=== PATIENT | female | born 1950 | race Caucasian/White ===

== ENCOUNTER 2019-08-09 11:25 | Observation (INO) | payer MEDICARE, BC ==
--- NOTE | 2019-08-09 11:37 | ED ---
Syncope/Near Syncope - HPI Summary HPI Summary: 69 year old F brought in by EMS from primary care provider's office to [facility] complains of syncopal episode with positive loss of consciousness yesterday 08/08/19 09:00 after taking a shower, getting out of the shower, sitting on the toilet to have a bowel movement, and developing dizziness, nausea, light headedness. Had a normal bowel movement then stood up from the toilet to reach for her pajamas which were hanging from the bathroom door, had a syncopal episode, and fell forward into the bathroom door, hitting her face on the door. Had follow up appointment with primary care provider this morning 08/09/19, was noted to be bradycardic in the office, referred to ED for further workup and evaluation. She does not know her usual HR. Patient states she feels weaker than usual today. No dizziness, headache, light headedness, blurred vision, chest pain, shortness of breath currently. The patient rates the pain 0/10 in severity. Symptoms aggravated by nothing. Symptoms alleviated by nothing. On Xarelto for hx DVT in right lower extremity in 2014. No alcohol, recreational drug use, tobacco use. - History Of Current Complaint Hx Obtained From: Patient Onset/Duration: Lasting Minutes, Resolved Context: Unwitnessed, Loss Of Consciousness Activity At Onset: Other - from sitting to standing position Aggravating Factor(s): Nothing Alleviating Factor(s): Nothing - Allergies/Home Medications Allergies/Adverse Reactions: Allergies Allergy/AdvReac Type Severity Reaction Status Date / Time Sulfa (Sulfonamide Allergy Unknown Verified 08/09/19 14:38 Antibiotics) Reaction Details fluticasone AdvReac Tachycardia Verified 08/09/19 14:38 [From Advair Diskus] salmeterol AdvReac Tachycardia Verified 08/09/19 14:38 [From Advair Diskus] Home Medications: Home Medications Calcium Carbonate [Calcium] 500 mg PO DAILY 08/09/19 [History Confirmed 08/09/19 ] PMH/Surg Hx/FS Hx/Imm Hx Endocrine/Hematology History: Denies: Hx Diabetes Cardiovascular History: Reports: Hx Deep Vein Thrombosis - on Xarelto Denies: Hx Hypertension History: Denies: Hx Renal Disease Sensory History: Reports: Hx Hearing Aid - BOTH EARS EENT History: Reports: Hx Hearing Aid - Cancer History Hx Chemotherapy: No Hx Radiation Therapy: No - Surgical History Surgery Procedure, Year, and Place: EYE - SURGERY FOR CROSS-EYED - as a child. CATARACT - Family History Known Family History: Positive: Hypertension - Social History Alcohol Use: None Hx Substance Use: No Substance Use Type: Reports: None Hx Tobacco Use: No Smoking Status (MU): Never Smoked Tobacco Review of Systems Negative: Blurred Vision Positive: Other - bradycardic. Negative: Chest Pain Negative: Shortness Of Breath Neurological: Negative - Dizziness, light headedness, Other - LOC Positive: Syncope. Negative: Headache All Other Systems Reviewed And Are Negative: Yes Physical Exam - Summary Physical Exam Summary: VITAL SIGNS: Reviewed. GENERAL: Patient is a well-developed and nourished FEMALE who is lying comfortable in the stretcher. Patient is not in any acute respiratory distress. HEAD AND FACE: No signs of trauma. No ecchymosis, hematomas or skull depressions. No sinus tenderness. EYES: PERRLA, EOMI x 2, No injected conjunctiva, no nystagmus. She has an area of ecchymosis under the right eye EARS: She has decreased hearing which is chronic. Ear canals and tympanic membranes are within normal limits. MOUTH: Oropharynx within normal limits. NECK: Supple, trachea is midline, no adenopathy, no JVD, no carotid bruit, no c- spine tenderness, neck with full ROM. CHEST: Symmetric, no tenderness at palpation. LUNGS: Clear to auscultation bilaterally. No wheezing or crackles. CVS: Regular rate and rhythm, S1 and S2 present, no murmurs or gallops appreciated. ABDOMEN: Soft, non-tender. No signs of distention. No rebound, no guarding, and no masses palpated. Bowel sounds are normal. EXTREMITIES: FROM in all major joints, no edema, no cyanosis or clubbing. NEURO: Alert and oriented x 3. No acute neurological deficits. Speech is normal and follows commands. SKIN: Dry and warm. GCS: 15 NIH: 0 Triage Information Reviewed: Yes Vital Signs Reviewed: Yes - Combined Locks Coma Scale Best Eye Response: 4 - Spontaneous Best Motor Response: 6 - Obeys Commands Best Verbal Response: 5 - Oriented Coma Scale Total: 15 Procedures - Sedation Patient Received Moderate/Deep Sedation with Procedure: No Diagnostics - Laboratory Result Diagrams: 08/09/19 11:41 08/09/19 11:41 Lab Statement: Any lab studies that have been ordered have been reviewed, and results considered in the medical decision making process. - Radiology CXR Radiology Interpretation Completed By: Radiologist Summary of Radiographic Findings: NO EVIDENCE FOR ACTIVE CARDIOPULMONARY DISEASE. ED physician has reviewed this report. - CT Brain CT Interpretation Completed By: Radiologist Summary of CT Findings: Although a lobulated hyperdense 1 cm structure in the inferior aspect of the fourth ventricle could be physician relations representative of prominent choroid plexus, further evaluation by brain MRI with contrast recommended. These findings were discussed with Dr. Benjy Reveles at 12:30 PM on August 09, 2019. ED physician has reviewed this report. Maxillofacial CT Interpretation Completed By: Radiologist Summary of CT Findings: THERE IS A MILDLY DEPRESSED FRACTURE OF THE FRONTAL PROCESS OF THE MAXILLA ON THE RIGHT SIDE. ED physician has reviewed this report. - EKG 1207 Cardiac Rate: Bradycardia - 52 BPM EKG Rhythm: Sinus Bradycardia Summary of EKG Findings: no ST elevations. normal axis National Institutes Of Health - NIH Scale Level of Consciousness: Alert/Keenly Responsive Ask Patient the Month and His/Her Age: Both Correct Ask Pt to Open/Close Eyes and Sas Programmer/Release Non-Paretic Hand: Both Correctly Best Gaze (Only Horizontal Eye Movement): Normal Visual Field Testing: No Visual Loss Facial Paresis-Pt to Smile & Close Eyes or Grimace Symmetry: Normal/Symmetrical Motor Function - Right Arm: No Drift-Holds 10 Seconds Motor Function - Left Arm: No Drift-Holds 10 Seconds Motor Function - Right Leg: No Drift-Holds 10 Seconds Motor Function - Left Leg: No Drift-Holds 10 Seconds Limb Ataxia-Must be out of Proportion to Weakness Present: Absent Sensory (Use Pinprick to Test Arms/Legs/Trunk/Face): Normal Best Language (Describe Picture, Name Items): No Aphasia Dysarthria (Read Several Words): Normal Extinction and Inattention: No Abnormality Total Score: 0 Re-Evaluation - Re-Evaluation First Eval Re-Evaluation Time: 12:30 Comment: Dr. Joe, radiology, called to report CT Brain findings Course/Dx Assessment/Plan: This patient is a 69-year-old female who presents to the emergency department with a chief complaint of having a syncopal episode yesterday. She reports positive loss of consciousness. Past medical history: DVT on Xarelto. Blood test results without any significant abnormality except for calcium 10.6, BNP is 120. Maxillofacial CT IMPRESSION: THERE IS A MILDLY DEPRESSED FRACTURE OF THE FRONTAL PROCESS OF THE MAXILLA ON THE RIGHT SIDE. Head CT IMPRESSION: Although a lobulated hyperdense 1 cm structure in the inferior aspect of the fourth ventricle could be physician relations representative of prominent choroid plexus, further evaluation by brain MRI with contrast recommended. I discussed the recommendation with Dr. Joe and recommends MRI as outpatient. CXR IMPRESSION: NO EVIDENCE FOR ACTIVE CARDIOPULMONARY DISEASE. EKG: Sinus bradycardia. No ST elevations. I discuss my physical exam and test results with Dr. Marquez from the hospitalist services and she agrees to admit the patient to her services. The patient is hemodynamically stable alert and oriented x 3. - Diagnoses Differential Diagnosis/HQI/PQRI: Positive: Cerebral Vascular Accident, Dysrhythmia, Myocardial Infarction, Transient Ischemic Attack, Vasovagal Episode Provider Diagnoses: Syncope, Fracture of frontal bone - Physician Notifications Discussed Care of Patient With: Dianne Marquez Time Discussed With Above Provider: 12:47 Instructed by Provider To: Admit As Inpatient Discharge ED - Sign-Out/Discharge Documenting (check all that apply): Patient Departure - Admit - Discharge Plan Condition: Stable Disposition: ADMITTED TO [facility] - Billing Disposition and Condition Condition: STABLE Disposition: Admitted to [facility] - Attestation Statements Document Initiated by Vlad: Yes Documenting Scribe: Darcie Arreguin Provider For Whom Vlad is Documenting (Include Credential): Benjy Reveles MD Scribe Attestation: I, Darcie Arreguin, scribed for Benjy Reveles MD on 08/10/19 at 0734. Scribe Documentation Reviewed: Yes Provider Attestation: The documentation as recorded by the Darcie heck accurately reflects the service I personally performed and the decisions made by me, Benjy Reveles MD Status of Scribe Document: Viewed
[2019-08-09 11:51] LABS: ABS Eosinophils 0.2 10^3/ul (0-0.6); ABS Lymphocytes 1.6 10^3/ul (1.0-4.8); ABS Monocytes 0.3 10^3/ul (0-0.8); ABS Neutrophils 3.8 10^3/ul (1.5-7.7); Eosinophil % 2.9 %; Hematocrit 44 % (35-47); Hemoglobin 14.5 g/dL (12.0-16.0); Lymphocyte % 26.7 %; Mean Corpuscular HGB Conc 33 g/dL (31-36); Mean Corpuscular Hemoglobin 29 pg (27-31); Mean Corpuscular Volume 89 fL (80-97); Mean Platelet Volume 8.9 fL (7.4-10.4); Nucleated Red Blood Cells % 0.1; Platelet Count 269 10^3/uL (150-450); Red Blood Count 4.96 10^6 /uL (3.70-4.87); Red Cell Distribution Width 14 % (10-15); White Blood Count 5.9 10^3/uL (3.5-10.8)
[2019-08-09 12:11] LABS: BUN/Creatinine Ratio 17.4 (8-20); EGFR Non-African American 60.3 (>60); Potassium 4.3 mmol/L (3.5-5.0)
[2019-08-09 12:12] LABS: Albumin 4.3 g/dL (3.2-5.2); Albumin/Globulin Ratio 1.4 (1-3); Calcium 10.6 mg/dL (8.6-10.3); Globulin 3.1 g/dL (2-4); Total Bilirubin 0.6 mg/dL (0.2-1.0); Total Protein 7.4 g/dL (6.4-8.9)
[2019-08-09] MEDS ORDERED: NS 0.9% 1000 ML** 1,000 ML IV ONE (12:44)
--- OUTSIDE RECORDS SUMMARY | 2019-08-09 12:58 | XMS REPORT | Continuity of Care Document ---
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 (For Blood Clot Prevention) Z86.718 Calcium 600 + D 1 by mouth twice 100tabs M81.0 Cliff Brantley, [id number] a day M.D. Tablets Medications Administered in Office Medication SIG Qnty Indications Ordering Provider Date H1N1 Swine Flu Vaccine Unknown 08/21/2009 Injection Immunizations CPT Code Status Date Vaccine Lot # [id number] Given 06/16/2019 Influenza Vaccine Split Virus Preservative Free Im Use (hi-dose) [id number] Given 09/19/2018 Shingrix Zoster (Shingles) Vaccine (HZV) Recomb,Subnit,Adjuvanted 44774 Given 05/28/2018 Influenza Vaccine Split Virus Preservative Free Im Use (hi-dose) 71431 Given 05/11/2017 Influenza Vaccine Split Virus Preservative Free Im Use (hi-dose) 10931 Given 08/06/2016 Pneumococcal Immunization [id number] 48071 Given 08/06/2016 Td Immunization [id number] U-Flu Given 06/01/2016 Influenza,Unspecified 24160 Given 08/04/2015 Prevnar 13 [id number] 46659 Given 06/03/2015 Influenza Virus Vaccine, Quadrivalent, Split, Preservative Free 30844 Given 06/11/2014 Flu, Split Virus 3Yrs 42106 Given 06/19/2013 Flu, Split Virus 3Yrs 35354 Given 06/13/2012 Flu, Split Virus 3Yrs 47738 Given 06/14/2011 Flu, Split Virus 3Yrs 13549 Given 07/22/2010 Zostavax 74236 Given 06/24/2010 Pneumococcal Immunization 80454 Given 06/24/2010 Flu, Split Virus 3Yrs 35258 Given 07/15/2008 Flu, Split Virus 3Yrs 83079 Given 07/14/2007 Flu, Split Virus 3Yrs [id number] 03756 Given 06/20/2006 Adacel or Boostrix, TDaP [id number] 90812 Given 08/12/2003 Flu, Split Virus 3Yrs Vital Signs Date Vital Result Comment 08/09/2019 9:14am BP Systolic 120 mmHg BP Diastolic 80 mmHg Height 62.50 inches 5'2.50" Weight 147.50 lb BMI (Body Mass Index) 26.5 kg/m2 10/28/2018 11:33am BP Systolic 118 mmHg BP Diastolic 72 mmHg Body Temperature 97.9 F Weight 150.00 lb Results Description No Information Available Procedures Date Code Description Status 08/09/2019 75586 Electrocardiogram Complete Completed 09/01/2018 37326668 Mammogram Completed Medical Devices Description No Information Available Encounters Description No Information Available Assessments Date Code Description Provider 08/09/2019 R55 Syncope and collapse Melinda Chambers MD 08/09/2019 Z68.26 Body mass index (BMI) 26.0-26.9, adult Melinda Chambers MD Plan of Treatment Future Appointment(s):08/20/2019 9:45 am - Cliff Brantley M.D. at [facility]/18/2017 - Fiona Smalls PAJ02.9 Acute pharyngitis, unspecifiedComments :Rapid strep negative, will do in-house throat culture. Recommended warm salt water gargles. Recheck if sx not improving. Functional Status Description No Information Available Mental Status Description No Information Available Referrals Refer to Reason for Referral Status Appt Date [facility] Episode of syncope in bathroom yesterday, ECG Created shows bradycardia 52 bpm [facility] [address] [place] [address] [phone]
[2019-08-09 13:24] LABS: TSH (Thyroid Stimulating Horm) 2.21 mcIU/mL (0.34-5.60)
[2019-08-09 14:33] LABS: Urine Appearance Clear; Urine Bilirubin Negative (Negative); Urine Blood Negative (Negative); Urine Color Straw; Urine Glucose Negative (Negative); Urine Ketones Negative (Negative); Urine Nitrite Negative (Negative); Urine Protein Negative (Negative); Urine Specific Gravity 1.006 (1.010-1.030); Urine Urobilinogen Negative (Negative)
[2019-08-09 14:39] LABS: Urine Bacteria Absent (Absent); Urine Red Blood Cell Trace(0-2/hpf) (Absent); Urine Squamous Epithelial Cell Present (Absent); Urine White Blood Cell Trace(0-5/hpf) (Absent)
--- NOTE | 2019-08-09 15:06 | HP ---
History of Present Illness - History of Present Illness Reason for Visit: Syncope- yesterday: One episode History of Present Illness: This is a 69 y/o F with history of unprovoked right lower extremity DVT presented with one episode of syncope that happened yesterday. According to her she was in usual state of health until yesterday morning 9-9:30 AM when she was taking a hot shower and at the end the shower she felt light headedness, dizziness and felt sick to abdomen. Then she sat on a commode and have a normal bowel movement, she was still feeling sick to her abdomen. Then she got up and was trying to get her pajamas when she blacked out and hit her head on door and next thing she remembers is trying to get up from the floor and she was not confused after the episode. She had bleeding from her nose which stopped after she pinched it with tissue. Then she went to bed and lied down and then felt better but when she looked out from the window she was experiencing blurry vision on her right eye which lasted for few hour and then went away. She felt generalized weakness on her body. She denies any chest pain, palpitation, skipping of heart beat, shortness of breath, focal weakness, slurry speech, facial droop, vertigo, nausea and vomiting. She denies urinary and fecal incontinence and seizure although nobody witnessed the episode. She denies fever , rash, joint pain and flu like symptom. 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 She drove to the office and EKG was done which showed bradycardia(HR of 52) and was sent to ED. In ED: She was asymptomatic. Her vitals sign were stable. Blood workup was normal except for calcium 10.6 and BNP 120. EKG showed sinus bradycardia with left axis deviation. CXR was normal. Brain CT showed lobulated hyperdense 1 cm structure in the inferior aspect of fourth ventricle which could be prominent choroid plexus and recommends further evaluation by MRI with contrast. Maxillofacial CT showed mildly depressed fracture of frontal process of maxilla on the right side. - Past Medical History Past Medical History: 1. Unprovoked DVT on right lower extremity in 2015- On Xarelto 20 mg daily 2. Nasal fracture - Past Surgical History Past Surgical History: 1. Squint surgery- during childhood - Past Family History Past Family History: Mother had Hypertension, Father had cancer. Has 3 kids and all are healthy. - Past Social History Past Social History: She lives alone and has a cat. She is retired. She denies use of alcohol, tobacco and recreational drug use. Her PCP is Cliff Brantley. She doesnot have HCP but her medical surrogate is her younger son-Hong Hensley([phone]). She is full code. Review of Systems - Review of Systems Constitutional: Positive: Weakness. Negative: Fever, Chills, Sweats, Malaise, Other Eyes: Negative: Pain, Vision Change, Conjunctivae Inflammation, Eyelid Inflammation, Redness, Other ENT: Positive: Other - epistaxis. Negative: Ear Pain, Ear Discharge, Nose Pain , Nose Discharge, Nose Congestion, Mouth Pain, Mouth Swelling, Throat Pain, Throat Swelling Respiratory: Negative: Cough, Dry, Shortness of Breath, Hemoptysis, SOB with Excertion, Pleuritic Pain, Sputum, Wheezing Cardiovascular: Positive: Light Headedness. Negative: Chest Pain, Palpitations , Orthopnea, Paroxysmal Noc. Dyspnea, Edema, Other Gastrointestinal: Negative: Nausea, Vomiting, Abdominal Pain, Diarrhea, Constipation, Melena, Hematochezia, Other Genitourinary: Negative: Dysuria, Frequency, Incontinence, Hematuria, Retention , Other Musculoskeletal: Negative: Neck Pain, Shoulder Pain, Arm Pain, Back Pain, Hand Pain, Leg Pain, Foot Pain, Other Skin: Negative: Rash, Lesions, Manas, Bruising, Other Neurological: Negative: Weakness, Numbness, Incoordination, Change in Speech, Confusion, Seizures, Other - Medications/Allergies Allergies/Adverse Reactions: Allergies Allergy/AdvReac Type Severity Reaction Status Date / Time Sulfa (Sulfonamide Allergy Unknown Verified 08/09/19 14:38 Antibiotics) Reaction Details fluticasone AdvReac Tachycardia Verified 08/09/19 14:38 [From Advair Diskus] salmeterol AdvReac Tachycardia Verified 08/09/19 14:38 [From Advair Diskus] Medications: Current Medications Calcium Carbonate (Calcium Carbonate Tab*) 1,250 mg PO DAILY [facility] Rivaroxaban (Xarelto(*)) 20 mg PO DAILY [facility] Exam Vital Signs: Vital Signs (72 hours) 08/09/19 08/09/19 08/09/19 11:34 11:35 11:36 Temperature 98.7 F Pulse Rate 59 54 55 Respiratory 18 Rate Blood Pressure 158/85 158/85 (mmHg) O2 Sat by Pulse 98 97 97 Oximetry 08/09/19 08/09/19 08/09/19 12:13 12:14 12:15 Temperature Pulse Rate Respiratory 19 20 19 Rate Blood Pressure 132/78 132/82 (mmHg) O2 Sat by Pulse Oximetry 08/09/19 08/09/19 08/09/19 12:17 12:19 12:35 Temperature Pulse Rate 64 56 Respiratory 22 21 Rate Blood Pressure 117/83 117/83 115/89 (mmHg) O2 Sat by Pulse 98 Oximetry 08/09/19 13:00 Temperature Pulse Rate 54 Respiratory 23 Rate Blood Pressure (mmHg) O2 Sat by Pulse 98 Oximetry Exam: Patient is lying on a bed in supine position and is not in acute distress. HEENT: Normocephalic. There is bruise on her right lower eyelid and on corner of right eye. Sclera anicteric. EOMI. PERRLA. Neck: No lymphadenopathy and enlarged thyroid. No JVD elevation. Lungs: Good respiratory effort and chest expansion. Clear with no added sound. Heart: Normal in rate and rhythm. S1/S2 heard with no murmur, rubs or gallops. Abdomen: Soft, nondistended and nontender. Normal BS heard. Extremities; No swelling, cyanosis or clubbing Neuro: Alert, oriented and coperative. CN intact. Motor normal and sensation intact. Assessment/Plan - Assessment/Plan Assessment: This is a 69 y/o F with history of unprovoked DVT presented after syncopal episode after defecation preceded by light headedness, dizziness, abdominal discomfort and followed by face injury. Found to have sinus bradycardia and depressed fracture of right maxilla.Brain CT showed lobulated hyperdense 1 cm structure in inferior aspect of the fourth ventricle. MRI pending. Plan: 1. Syncope: One episode yesterday preceded by prodrome. D/D includes vasovagal syncope, situational syncope(post defecation), arhythmia or orthostatic hypotension. It happened after she had her breakfast so less likely hypoglycemia. We will do TTE to rule out any structural heart disease. MRI brain is ordered given lobulated hyperdense structure seen in CT. We will put her on Tele monitor and monitor for arhythmia. 2. Head injury: According to CT, most likely prominent choroid plexus but given her Xarelto use and facial fracture we will rule out hemorrhage by MRI although less likely. Hold Xarelto till hemorrhage ruled out. 3. Maxillary fracture: Mild depressed fracture of frontal process of right maxilla. We will consult ENT for this. 4. DVT: Hold xarelto for now. Can be restarted once hemorrhage is ruled out. We will put her on SCD till then. 5. Diet: Regular diet. 6. Code: Full code. Attestation Documenting Resident: Miranda Razo Supervising Physician: Katie Howard Attending/Supervising Physician Comment: 69W with history of unprovoked DVT, presents 1 day after syncopal episode. She felt hot and woozy yesterday in shower, with stomach feeling slightly upset, as thought she needed to defecate. She sat on toilet and had BM, but after getting up and walking towards her bedroom, she got progressively more lightheaded and lost consciousness, hitting her right orbit on a door on her way to the floor. She quickly regained consciousness, saw PCP the next day, who recommended coming to ER given HR 50s in clinic. Patient feels well now and denies lightheadedness on standing now or recently. Likely orthostatic vasovagal syncope, however, will monitor on tele overnight, given HR in 50s now. Check TTE. Will also check brain imaging, as pt is on blood thinners, however she denies all neuro symptoms and neuro exam is normal. Of note, pt has had slightly elevated serum calclium for years. She supplements with calcium for osteoporosis and is s/p years of a bisphosphonate. She didnt' know she should take vitamin D instead. Will check level and recommend supplement, if low. Attestation: This service has been performed in part by a resident under the direction of a teaching physician.I, Katie Howard, performed the service, or was physically present during the critical, or españa portions of the service, furnished by the resident. I participated in the management of the patient.
[2019-08-09] MEDS ORDERED: Acetaminophen TAB* 325 MG PO PRN (15:49)
[2019-08-09 17:21] LABS: Vitamin D Total 25(OH) 14.9 ng/mL (20-50)
[2019-08-09] MEDS ORDERED: Gadoteridol* (CONTRAST) 279.3 MG/ML 10 ML IV ONE (18:55)
--- NOTE | 2019-08-10 06:37 | PN ---
Subjective Date of Service: 08/10/19 Interval History: HD 2 on 08/10 Overnight events: Had HR of 49 at 2:00 AM in the morning. EKG showed sinus bradycardia with HR of 54 Vitals stable Patient denies chest pain, palpitation and dizziness. Objective Active Medications: Acetaminophen (Tylenol Tab*) 650 mg PO Q6H PRN PRN Reason: PAIN - MILD Cholecalciferol (Vitamin D Tab*) 1,000 units PO DAILY [facility] Rivaroxaban (Xarelto(*)) 20 mg PO DAILY [facility] Vital Signs - 8 hr 08/09/19 08/10/19 23:32 02:26 Temperature 97.4 F 97.5 F Pulse Rate 52 58 Respiratory 16 18 Rate Blood Pressure 132/76 126/73 (mmHg) O2 Sat by Pulse 98 97 Oximetry Oxygen Devices in Use Now: None Exam: Patient is lying on a bed in supine position and is not in acute distress. HEENT: Normocephalic. There is bruise on her right lower eyelid and on corner of right eye. Sclera anicteric. EOMI. PERRLA. Neck: No lymphadenopathy and enlarged thyroid. No JVD elevation. Lungs: Good respiratory effort and chest expansion. Clear with no added sound. Heart: Normal in rate and rhythm. S1/S2 heard with no murmur, rubs or gallops. Abdomen: Soft, nondistended and nontender. Normal BS heard. Extremities; No swelling, cyanosis or clubbing Neuro: Alert, oriented and coperative. CN intact. Motor normal and sensation intact. Result Diagrams: 08/09/19 11:41 08/09/19 11:41 Assess/Plan/Problems-Billing Assessment: This is a 69 y/o F with history of unprovoked DVT presented after syncopal episode after defecation preceded by light headedness, dizziness, abdominal discomfort and followed by face injury. Found to have sinus bradycardia and depressed fracture of right maxilla.Brain CT showed lobulated hyperdense 1 cm structure in inferior aspect of the fourth ventricle. MRI negative for hemorrhage. Echo normal. Most likely vasovagal syncope - Patient Problems (1) Syncope Status: Acute Code(s): R55 - SYNCOPE AND COLLAPSE SNOMED Code(s): 823668916 Comment: -Most likley vasovagal -has sinus bradycardia -tele uneventful for arrythmia -asymptomatic -echo- normal EF and no valvular problem. (2) Maxillary fracture Status: Acute Code(s): S02.401A - MAXILLARY FRACTURE, UNSPECIFIED SIDE, INIT SNOMED Code(s): 057515429 Comment: -Mild depressed fracture of frontal process of right maxilla. -talked with Dr. Rocha yesterday and recommends no intervention at this moment. -She can f/u with Dr. Rocha as an out patient (3) Chronic deep vein thrombosis (DVT) Status: Acute Code(s): I82.509 - CHRONIC EMBOLISM AND THOMBOS UNSP DEEP VN UNSP LOW EXTRM SNOMED Code(s): 14105410168915756 Comment: -Continue Xarelto 20 mg daily (4) Vitamin D deficiency Status: Acute Code(s): E55.9 - VITAMIN D DEFICIENCY, UNSPECIFIED SNOMED Code (s): 55526576 Comment: -supplememnting Vitamin D3 (5) Full code status Status: Acute Code(s): Z78.9 - OTHER SPECIFIED HEALTH STATUS SNOMED Code(s) : 912846172 Status and Disposition: Inpatient Attending: Katie Howard Attestation Documenting Resident: Miranda Razo Supervising Physician: Katie Howard Attestation: This service has been performed in part by a resident under the direction of a teaching physician.I, Katie Howard, performed the service, or was physically present during the critical, or es[place] portions of the service, furnished by the resident. I participated in the management of the patient.
[2019-08-10] MEDS ORDERED: Perflutren Lipid Microsphere* 3 ML VIAL ONE (08:44)
[2019-08-10] MEDS ORDERED: Cholecalciferol TAB* 1000 UNITS PO SCH (09:00)
[2019-08-10] MEDS ORDERED: Rivaroxaban TAB(*) 20 MG TAB PO SCH ×2 (09:00)
[2019-08-10] MEDS ORDERED: Calcium Carbonate TAB* 1250 MG (CALCIUM 500 MG) PO SCH (09:00)
--- NOTE | 2019-08-10 10:19 | ECHO ---
*[facility]* [place] [address] Fax #: [phone] Transthoracic Echocardiogram Patient: Kandace Hensley : 1950 Study Date: 08/10/2019 Age: 69 Gender: F HR: 51 bpm Height: 62 in /157.5 cm BSA: 1.68 m^2 Weight: 146.7 lb /66.7 kg BMI: 26.9 kg/m^2 *Pet Caregiver: * Lucita Bright RDCS RN *Referring Physician: * Miranda Razo *Reading Physician: * Usama Tejada MD Indications: Syncope. History: DVT in the past. Conclusions Summary: - Left ventricle: The cavity size is normal. Wall thickness is normal. Systolic function is normal. The estimated ejection fraction is 60-65%. Wall motion is normal; there are no regional wall motion abnormalities. - Right ventricle: The cavity size is normal. Systolic function is normal. - Left atrium: The atrium is normal in size. - No significant valvular abnormalities noted. Recommendations: None prior for comparison at time of interpretation. Study data: Transthoracic echocardiogram. Procedure: Transthoracic echocardiography was performed. Image quality was fair. Intravenous Definity 2 ml was administered to enhance imaging. Complete 2D, spectral Doppler, and color flow Doppler. Location: Bedside. Patient status: Observation. Patient room number: 441-02. Rhythm: Bradycardia with occasional PACs. Findings Left ventricle: The cavity size is normal. Wall thickness is normal. Systolic function is normal. The estimated ejection fraction is 60-65%. Wall motion is normal; there are no regional wall motion abnormalities. There is no consistent Doppler evidence of clinically significant diastolic dysfunction. Right ventricle: The cavity size is normal. Systolic function is normal. Left atrium: The atrium is normal in size. Right atrium: The atrium is normal in size. Mitral valve: The leaflets are mildly thickened. There is no evidence of stenosis. There is trace regurgitation. Aortic valve: The valve is trileaflet. The leaflets are mildly thickened. There is no evidence of stenosis. There is trace to mild regurgitation. Tricuspid valve: The valve is structurally normal. There is no evidence of stenosis. There is trace regurgitation. Pulmonic valve: The valve is structurally normal. There is no evidence of stenosis. There is trace regurgitation. Aorta: Ascending aorta: The ascending aorta is upper normal in size. Aortic arch: The aortic arch is not dilated. The aortic root appears normal. Pericardium: There is no significant pericardial effusion. Pulmonary arteries: Not well visualized. Systolic pressure is within the normal range, estimated to be 22 mm Hg. Systemic veins: Inferior vena cava: The vessel is normal in size. There is (>= 50%) respiratory change in the IVC dimension. Measurements Left ventricle Value Ref Aortic valve continued Value Ref FRANCOISE, LAX 4.5 cm 3.8 - 5.2 Allison diam/bsa, ED 1.0 cm/m^2 ---- ESD, LAX 2.4 cm 2.2 - 3.5 Peak v, S 1.32 m/sec ---- FS, LAX (H) 47 % 27 - 45 VTI, S 33.0 cm ---- PW, ED 0.9 cm 0.6 - 0.9 Mean grad, S 4.0 mm Hg ---- IVS/PW, ED 1.22 Peak grad, S 7.0 mm Hg ---- E', lat allison, TDI (L) 7.5 cm/sec >=10.0 LVOT/AV, VTI ratio 0.69 ---- E/e', lat allison, 9 TDI Mitral valve Value Ref E', med allison, TDI (L) 4.6 cm/sec >=7.0 Peak E 0.66 m/sec ---- E/e', med allison, 14 Peak A 0.76 m/sec --- - TDI Decel time 246 ms ---- E', avg, TDI 6.1 cm/sec Peak E/A ratio 0.9 --- - E/e', avg, TDI 11 <=14 Pulmonic valve Value Ref LVOT Value Ref Peak v, S 0.67 m/sec ---- Peak chayo, S 1.04 m/sec Peak grad, S 2.0 mm Hg ---- VTI, S 22.7 cm Mean grad, S 2 mm Hg Tricuspid valve Value Ref Peak RV-RA grad, S 19 mm Hg ---- Ventricular septum Value Ref Max TR chayo 2.16 m/sec ---- IVS, ED (H) 1.1 cm 0.6 - 0.9 Aortic root Value Ref Right ventricle Value Ref Root diam 3.2 cm <3.9 FRANCOISE, LAX 3.1 cm FRANCOISE minor ax, A4C 3.0 cm 1.9 - 3.5 Ascending aorta Value Ref mid AAo AP diam, S 3.5 cm ---- Pressure, S 22 mm Hg Aortic arch Value Ref Left atrium Value Ref Arch diam 2.3 cm ---- AP dim, ES 3.40 cm 2.70 - 3.80 Decending aorta Value Ref ML dim, A4C 3.0 cm Twan peak chayo 0.54 m/sec ---- SI dim, A4C 4.8 cm Vol/bsa, ES, 1-p 20 ml/m^2 11 - 40 Pulmonary artery Value Ref A4C Pressure, S 22.0 mm Hg ---- Vol/bsa, ES, A/L 29 ml/m^2 16 - 34 Inferior vena cava Value Ref Right atrium Value Ref Diam 1.2 cm ---- ML dim, ES, A4C 3.6 cm 2.6 - 4.4 SI dim, ES, A4C 4.7 cm 3.4 - 5.3 Estimated RAP 3 mm Hg Aortic valve Value Ref Allison diam, ED 1.6 cm Legend: (L) and (H) becca values outside specified reference range. Prepared and electronically signed by Usama Tejada MD 08/10/2019 10:19
--- NOTE | 2019-08-10 11:31 | DS ---
DISCHARGE SUMMARY: DATE OF ADMISSION: 08/09/19 DATE OF DISCHARGE: 08/10/19 PRIMARY CARE PHYSICIAN: Cliff Brantley MD PRIMARY DIAGNOSES: 1. Orthostatic vasovagal syncope. 2. Mildly depressed fracture of the frontal process of the maxilla on the right side. SECONDARY DIAGNOSIS: Osteoporosis. DISCHARGE MEDICATIONS: 1. Rivaroxaban 20 mg daily. 2. Vitamin D3 1000 units daily. HISTORY OF PRESENT ILLNESS: Ms. Hensley is a 69-year-old woman with a history of unprovoked right lower extremity DVT, who is presenting 1 day after a syncopal episode. She was in her usual state of health until getting in the shower in the morning. During a very long hot shower, she began to feel lightheaded, dizzy, and with an upset stomach. She felt the urge to defecate, so she sat on a commode and had a normal bowel movement. After getting up from the toilet, she continued to feel lightheaded and woozy, but she tried walking out of her bathroom. Her lightheadedness worsened and she fell, hit her head on the door on the way down , and blacked out. She does not think she had loss of conscious for very long, and the next thing she remembers is getting up off the floor. She was not confused after this episode. She had mild amount of bleeding from her nose. She laid down in her bed for a short period of time and felt better, but she called and made an appointment with her primary care physician for the next day. She saw a physician laundry assistant in clinic who noted that she had a heart rate in the 50s and asked her to present to the emergency room. The patient denies lightheadedness when going from sitting to standing. She reports history of low heart rates. She denied chest pain, shortness of breath, palpitations, focal weakness, slurred speech, nausea, vomiting. She denies dysuria or fecal or urinary incontinence. HOSPITAL COURSE: In the emergency room, the patient was asymptomatic with stable vital signs. Her blood tests were unremarkable. Her EKG showed sinus bradycardia. A chest x- ray was normal. CT scan of her brain showed a lobulated hypodense 1 cm structure in the inferior aspect of the fourth ventricle, so Radiology recommended further evaluation with brain MRI, as the patient iss on blood thinners. A maxillofacial CT showed mildly depressed fracture of the frontal process of the maxilla on the right side. This case was discussed with Dr. Rocha of Plastic Surgery and he recommends no intervention in the hospital, but the patient can follow up as an outpatient. The patient was admitted to telemetry and monitored overnight without significant events. Her heart rate was noted to occasionally dip down into the 40s, but she was asymptomatic at that time and her heart rate responded appropriately to exertion. Orthostatics were normal. Brain MRI was performed and was without acute intracranial abnormality. No discrete fourth ventricle mass is visualized, so it was thought that the CT findings are secondary to choroid plexus. It was noted that the patient had a mildly increased serum calcium to 10.6, upper limit of normal is 10.3. This is dating back to 2012. It is noted that the patient does intermittently supplement with oral calcium. It was discussed that it is better to get calcium from foods, and that for the patient's history of osteoporosis, she should instead perform weight-bearing exercise and supplement with vitamin D. Vitamin D level was checked this hospitalization and was low. By next morning, the patient continued to feel asymptomatic and eager to go home, so she was discharged to follow up with her outpatient providers. PERTINENT DIAGNOSTIC STUDIES: CBC, BMP, LFTs remarkable only for very mild elevation in serum calcium to 10.6. Troponin 0. BNP 120. TSH 2.21. Vitamin D level 15. UA with trace leukocyte esterase and squamous epithelial cells present. Brain CT with lobulated hypodense 1 cm structure in the inferior aspect of the fourth ventricle, which could be treasury representative of a prominent choroid plexus. Brain MRI is recommended. Brain MRI without acute intracranial abnormality, no discrete fourth ventricle mass is visualized. The CT findings are secondary to the choroid plexus. CT maxillofacial without contrast with right maxilla mildly depressed fracture of the frontal process. Chest x-ray, no evidence for acute cardiopulmonary disease. EKG with sinus bradycardia with rate 52, possible LVH. DISCHARGE PLAN: The patient will be discharged to continue to follow up with her PCP, Dr. Cliff Brantley. She was recommended to stop supplementing with oral calcium and instead to switch to an oral vitamin D supplement. She may continue her home anticoagulation as before. She is on no other medications. For mild maxilla depressed fracture, the patient will follow up in plastic surgery clinic although it is unlikely that any intervention is needed. She should continue to eat a healthy diet, low in processed foods, and resume activity as tolerated. She was educated to remain in seated or lying position if she feels as though she is experiencing a vasovagal prodrome again, and also to limit hot showers and maintain hydration. She was educated on return precautions, which include but are not limited to recurrence of syncope or new symptoms of headache or focal neuro symptoms. DISPOSITION: Home. CONDITION: Good. TIME SPENT: Approximately 60 minutes was spent on discharge of this patient, more than half of which was spent with care coordination at bedside for interview and exam. [id number]/[facility] #: [id number] [place]
[2019-08-10 11:41] VITALS: BP 124/68
== END 2019-08-10 12:41 | disposition home or self-care (01) ==
LOC: ED 11:25 → MEDTELE 14:04
PROVIDERS: ADMIT Internal Medicine; ATTEND Internal Medicine
DX: I95.1 Orthostatic hypotension (principal); S02.40CA Maxillary fracture, right side, initial encounter for closed fracture; M81.0 Age-related osteoporosis without current pathological fracture; Z86.718 Personal history of other venous thrombosis and embolism; R00.1 Bradycardia, unspecified; Z79.899 Other long term (current) drug therapy; Z79.01 Long term (current) use of anticoagulants; W18.2XXA Fall in (into) shower or empty bathtub, initial encounter; Y92.9 Unspecified place or not applicable; E55.9 Vitamin D deficiency, unspecified
CPT/HCPCS: 36415; 70450; 70486; 70553; 71046; 80053; 81003; 81015; 82306; 82550; 83605; 83735; 83880; 84443; 84484; 85025; 85730; 87086; 93005; 93306; 96360; 96361; 99284; A9270-GY; A9579; C8929; G0378; G8978-GP-CH; G8979-GP-CH; G8980-GP-CH